=== PATIENT | female | born 1990 | race Caucasian/White ===

== ENCOUNTER 2017-07-03 10:13 | Emergency (ER) | payer SELFPAY ==
[2017-07-03 18:10] VITALS: BP 120/77
== END 2017-07-03 22:06 | disposition left against medical advice (07) ==
LOC: ED 10:13
DX: R10.9 Unspecified abdominal pain (principal); R07.0 Pain in throat; Z53.21 Procedure and treatment not carried out due to patient leaving prior to being seen by health care provider